=== PATIENT | female | born 1990 | race Caucasian/White ===

== ENCOUNTER → 2016-06-01 | Outpatient (CLI) | payer OTHER ==
[~2016-06-01] MED LIST: ALPR0.5T PO; LURA40TA PO; trazodone
--- NOTE | 2016-06-01 18:19 | Diagnostic Imaging Report ---
EXAMINATION: Right breast ultrasound. INDICATION: Lump in the right breast. FINDINGS: The four quadrants and retroareolar region of the right breast was scanned with no underlying abnormality seen. IMPRESSION: Negative study. Correlate clinically. Mammogram was not done at this time based on the young patient age. If there is worsening of the symptoms or high index of suspicion, then please order a mammogram. ACR BI-RADS Category 1: Negative. Result letter will be mailed to the patient. Note: At least 10% of breast cancer is not imaged by mammography. Dictated by: Dictated on workstation # [id number]
== END ==
LOC: RAD 08:46
PROVIDERS: ATTEND Family Medicine
DX: N63 Unspecified lump in breast (principal)
CPT/HCPCS: 76641

== ENCOUNTER 2016-12-17 18:38 | Emergency (ER) | payer SELFPAY ==
[~2016-12-17] VITALS: Ht 157.5 cm; Wt 63.5 kg
--- OUTSIDE RECORDS SUMMARY | 2016-12-17 18:43 | XMS REPORT | Continuity of Care Document ---
Author Author [facility] Organization [facility] Address Unknown Phone Unavailable Allergies Active Description Code Type Severity Reaction Onset Reported/Identified Relationship to Patient Clinical Status Yes No Known Drug Allergies [id number] Drug Allergy Unknown N/ A 02/23/2014 Medications Problems Date Dx Coded Attending Type Code Diagnosis Diagnosed By 01/03/2013 JANAE PAZ APRNIDI A V25.09 CONTRACEPTIVE COUNSELING - GENERAL 01/03/2013 JACKSON PRIETO JENNY A V74.5 STD SCREEN 01/03/2013 JACKSON PRIETO JENNY A V25.09 CONTRACEPTIVE COUNSELING - GENERAL 01/03/2013 JACKSON PRIETO JENNY A V74.5 STD SCREEN 01/03/2013 MADIE ISLAS MD V25.09 CONTRACEPTIVE COUNSELING - GENERAL 01/03/2013 MADIE ISLAS MD V74.5 STD SCREEN 01/03/2013 JACKSON PRIETO, JENNY A V25.09 CONTRACEPTIVE COUNSELING - GENERAL 01/03/2013 JACKSON PRIETO, JENNY A V74.5 STD SCREEN 01/03/2013 JACKSON PRIETO, JENNY A V25.09 CONTRACEPTIVE COUNSELING - GENERAL 01/03/2013 JACKSON PRIETO, JENNY A V74.5 STD SCREEN 01/03/2013 JACKSON PRIETO JENNY A V25.09 CONTRACEPTIVE COUNSELING - GENERAL 01/03/2013 JACKSON PRIETO, JENNY A V74.5 STD SCREEN 01/03/2013 ALMA PHD, CHETAN Cordon V25.09 CONTRACEPTIVE COUNSELING - GENERAL 01/03/2013 ALMA TAN, CHETAN Cordon V74.5 STD SCREEN 01/03/2013 ALMA TAN, CHETAN Cordon V25.09 CONTRACEPTIVE COUNSELING - GENERAL 01/03/2013 ALMA TAN, CHETAN Cordon V74.5 STD SCREEN 01/03/2013 KAMRON TYLER V25.09 CONTRACEPTIVE COUNSELING - GENERAL 01/03/2013 KAMRON TYLER V74.5 STD SCREEN 01/03/2013 KAMRON TYLER V25.09 CONTRACEPTIVE COUNSELING - GENERAL 01/03/2013 KAMRON TYLER V74.5 STD SCREEN 03/11/2013 JANAE PAZ APRNIDI A V25.11 IUD INSERTION 03/11/2013 MADIE ISLAS MD V25.11 IUD INSERTION 03/11/2013 JANAE PAZ APRNIDI A V25.11 IUD INSERTION 03/11/2013 JANAE PAZ APRNIDI A V25.11 IUD INSERTION 03/11/2013 JANAE PAZ APRNIDI A V25.11 IUD INSERTION 03/11/2013 ALMA PHD, CHETAN Cordon V25.11 IUD INSERTION 03/11/2013 ALMA PHD, HCETAN Cordon V25.11 IUD INSERTION 03/11/2013 KAMRON TYLER V25.11 IUD INSERTION 03/11/2013 KAMRON TYLER V25.11 IUD INSERTION 03/21/2013 MADIE ISLAS MD 296.99 OTHER SPECIFIED EPISODIC MOOD DISORDER 03/21/2013 JANAE PAZ APRNIDI A 296.99 OTHER SPECIFIED EPISODIC MOOD DISORDER 03/21/2013 JANAE PAZ APRNIDI A 296.99 OTHER SPECIFIED EPISODIC MOOD DISORDER 03/21/2013 JANAE PAZ APRNIDI A 296.99 OTHER SPECIFIED EPISODIC MOOD DISORDER 03/21/2013 ALMA PHD, CHETAN Cordon 296.99 OTHER SPECIFIED EPISODIC MOOD DISORDER 03/21/2013 ALMA TAN, CHETAN Cordon 296.99 OTHER SPECIFIED EPISODIC MOOD DISORDER 03/21/2013 KAMRON TYLER 296.99 OTHER SPECIFIED EPISODIC MOOD DISORDER 03/21/2013 KAMRON TYLER 296.99 OTHER SPECIFIED EPISODIC MOOD DISORDER 05/22/2013 JACKSON PRIETO JENNY A 493.00 EXTRINSIC ASTHMA UNSPECIFIED 05/22/2013 JANAE PAZ APRNIDI A 790.6 OTHER ABNORMAL BLOOD CHEMISTRY 05/22/2013 JACKSON PRIEOT JENNY A 996.32 MECHANICAL COMPLICATION DUE TO INTRAUTERINE CONTRACEPTIVE DEVICE 05/22/2013 JANAE PAZ APRNIDI A V25.12 IUD REMOVAL 05/22/2013 JANAE PAZ APRNIDI A 493.00 EXTRINSIC ASTHMA UNSPECIFIED 05/22/2013 JACKSON PATTERN MOLDER, JENNY A 790.6 OTHER ABNORMAL BLOOD CHEMISTRY 05/22/2013 JACKSON VARGASN, JENNY A 996.32 MECHANICAL COMPLICATION DUE TO INTRAUTERINE CONTRACEPTIVE DEVICE 05/22/2013 JACKSON VARGASN, JENNY A V25.12 IUD REMOVAL 05/22/2013 JACKSON VARGASN, JENNY A 493.00 EXTRINSIC ASTHMA UNSPECIFIED 05/22/2013 JACKSON VARGASN, JENNY A 790.6 OTHER ABNORMAL BLOOD CHEMISTRY 05/22/2013 JACKSON VARGASN, JENNY A 996.32 MECHANICAL COMPLICATION DUE TO INTRAUTERINE CONTRACEPTIVE DEVICE 05/22/2013 JACKSON VARGASN, JENNY A V25.12 IUD REMOVAL 05/22/2013 ALMA TAN, CHETAN Cordon 493.00 EXTRINSIC ASTHMA UNSPECIFIED 05/22/2013 ALMA TAN, CHETAN Cordon 790.6 OTHER ABNORMAL BLOOD CHEMISTRY 05/22/2013 ALMA TAN, CHETAN Cordon 996.32 MECHANICAL COMPLICATION DUE TO INTRAUTERINE CONTRACEPTIVE DEVICE 05/22/2013 CHETAN MARQUEZ PHD V25.12 IUD REMOVAL 05/22/2013 CHETAN MARQUEZ PHD 493.00 EXTRINSIC ASTHMA UNSPECIFIED 05/22/2013 ALMA TAN, CHETAN Cordon 790.6 OTHER ABNORMAL BLOOD CHEMISTRY 05/22/2013 ALMA TAN, CHETAN Cordon 996.32 MECHANICAL COMPLICATION DUE TO INTRAUTERINE CONTRACEPTIVE DEVICE 05/22/2013 ALMA TAN, CHETAN Cordon V25.12 IUD REMOVAL 05/22/2013 JAKE BUNDLE HELPER, KAMRON M 493.00 EXTRINSIC ASTHMA UNSPECIFIED 05/22/2013 JAKE BUNDLE HELPER, KAMRON M 790.6 OTHER ABNORMAL BLOOD CHEMISTRY 05/22/2013 JAKE BUNDLE HELPER, KAMRON M 996.32 MECHANICAL COMPLICATION DUE TO INTRAUTERINE CONTRACEPTIVE DEVICE 05/22/2013 JAKE BUNDLE HELPER, KAMRON M V25.12 IUD REMOVAL 05/22/2013 JAKE BUNDLE HELPER, KAMRON M 493.00 EXTRINSIC ASTHMA UNSPECIFIED 05/22/2013 JAKE BUNDLE HELPER, KAMRON M 790.6 OTHER ABNORMAL BLOOD CHEMISTRY 05/22/2013 JAKE BUNDLE HELPER, KAMRON M 996.32 MECHANICAL COMPLICATION DUE TO INTRAUTERINE CONTRACEPTIVE DEVICE 05/22/2013 JAKE BUNDLE HELPER, KAMRON M V25.12 IUD REMOVAL 07/15/2013 JACKSON VARGASN, JENNY A V25.42 CONTRACEPTION SURVEILLANCE (IUD) 07/15/2013 CHETAN MARQUEZ PHD V25.42 CONTRACEPTION SURVEILLANCE (IUD) 07/15/2013 CHETAN MARQUEZ PHD V25.42 CONTRACEPTION SURVEILLANCE (IUD) 07/15/2013 KAMRON TYLER V25.42 CONTRACEPTION SURVEILLANCE (IUD) 07/15/2013 KAMRON TYLER V25.42 CONTRACEPTION SURVEILLANCE (IUD) 11/27/2013 CHETAN MARQUEZ PHD 296.80 MO BIPOLAR NOS 11/27/2013 CHETAN MARQUEZ PHD 300.00 AN ANXIETY UNSPEC 11/27/2013 CHETAN MARQUEZ PHD 296.80 MO BIPOLAR NOS 11/27/2013 CHETAN MARQUEZ PHD 300.00 AN ANXIETY UNSPEC 11/27/2013 KAMRON TYLER 296.80 MO BIPOLAR NOS 11/27/2013 KAMRON TYLER 300.00 AN ANXIETY UNSPEC 11/27/2013 KAMRON TYLER M 296.80 MO BIPOLAR NOS 11/27/2013 KAMRON TYLER M 300.00 AN ANXIETY UNSPEC 01/17/2014 KAMRON TYLER M 305.20 CANNABIS ABUSE 01/17/2014 KAMRON TYLER M 305.20 CANNABIS ABUSE 02/23/2014 KULDEEP DODD Ot 611.72 02/23/2014 FORTINO CAMARENA, NITISH [place] Ot 372.30 CONJUNCTIVITIS NOS 02/23/2014 FORTINO CAMARENA, NITISH [place] Ot 379.91 PAIN IN OR AROUND EYE 06/11/2014 KULDEEP DODD LUMBER CUTTER Ot 611.72 06/01/2016 KULDEEP DODD LUMBER CUTTER Ot 611.72 LUMP OR MASS IN BREAST 06/01/2016 KULDEEP DODD LUMBER CUTTER Ot 611.72 LUMP OR MASS IN BREAST 06/01/2016 MADIE ISLAS MD Ot N63 UNSPECIFIED LUMP IN BREAST 07/25/2016 MADIE ISLAS MD Ot N63 UNSPECIFIED LUMP IN BREAST Procedures Code [place] [address] GC/CHLAM URINE (STATE) 01/03/2013 51340 URINE TEST (IN-HOUSE) 01/03/2013 61151 TEST, URINE (IN-HOUSE) 03/11/2013 70622 IUD INSERTION 08/2013 J7302 LEVONORGESTREL IU CONTRACEPT 03/11/2013 44143 ROUTINE VENIPUNCTURE 05/22/2013 23837 IUD REMOVAL 05/22 69382 CMP 05/22/2013 51163 LIPID PANEL 05/22 96707 TEST, URINE (IN-HOUSE) 06/03/2013 07151 IUD INSERTION J7302 LEVONORGESTREL IU CONTRACEPT 06/03/2013 73719 PSYCH DIAGNOSTIC EVALUATION 11/27/2013 13355 PSYTX PT&/FAMILY 45 MINUTES 12/18/2013 43665 PSYCH DIAG EVAL W/MED SRVCS 01/19/2014 33294 PSYCH DIAG EVAL W/MED SRVCS 03/10/2014 Results Encounters ACCT No. Visit Date/Time Discharge Status Pt. Type Provider Facility Loc./Unit Complaint [id number] 06/01/2016 08:46:00 2016 23:59:59 CLS Outpatient ROSHAN CAMARENA, MADIE [place] [facility] RAD LUMP IN BREAST [id number] 02/23/2014 01:51:00 2013 02:13:00 DIS Emergency FORTINO CAMARENA, NITISH [place] [facility] ER L EYE IRRITATION [id number] 01/15/2013 10:16:00 2012 23:59:59 CLS Outpatient KULDEEP DODD LUMBER CUTTER [facility] RAD BREAST MASS [id number] 03/21/2014 16:33:00 03/21/2014 23: 59:59 CLS Outpatient KAMRON TYLER [id number] 01/17/2014 15:42:00 01/17/2014 23: 59:59 CLS Outpatient KAMRON TYLER [id number] 12/18/2013 14:40:00 12/18/2013 23: 59:59 CLS Outpatient CHETAN MARQUEZ PHD [id number] 11/27/2013 12:38:00 11/27/2013 23: 59:59 CLS Outpatient CHETAN MARQUEZ PHD [id number] 07/15/2013 15:56:00 07/15/2013 23: 59:59 CLS Outpatient JENNY PAZ APRN [id number] 06/03/2013 16:10:00 06/03/2013 23: 59:59 CLS Outpatient JENNY PAZ APRN [id number] 05/22/2013 16:04:00 05/22/2013 23: 59:59 CLS Outpatient JENNY PAZ APRN [id number] 03/21/2013 14:06:00 03/21/2013 23: 59:59 CLS Outpatient MADIE ISLAS MD [id number] 03/11/2013 14:48:00 03/11/2013 23: 59:59 CLS Outpatient JENNY PAZ APRN [id number] 01/03/2013 16:53:00 01/03/2013 23: 59:59 CLS Outpatient JENNY PAZ APRN
--- NOTE | 2016-12-17 19:40 | Diagnostic Imaging Report ---
INDICATION: Left leg injury. COMPARISON: None. EXAMINATION: Three views of the left tibia and fibula were obtained. FINDINGS: No fracture or dislocation. Articular surfaces are normal. There is no foreign body. No osseous lesion. IMPRESSION: Negative left tibia and fibula. Dictated by: Dictated on workstation # [id number]
--- NOTE | 2016-12-17 20:28 | Diagnostic Imaging Report ---
PROCEDURE: US left lower extremity venous. TECHNIQUE: Multiple real-time grayscale images were obtained over the left lower extremity in various projections. Additional duplex Doppler and color Doppler images were also obtained. INDICATION: Left calf pain COMPARISON: None FINDINGS: The visualized deep and superficial venous system is patent. There is no mass or DVT. IMPRESSION: Negative left lower extremity venous Doppler Dictated by: Dictated on workstation # [id number]
--- NOTE | 2016-12-17 20:43 | ED Lower Extremity ---
General Chief Complaint: Lower Extremity Stated Complaint: L LEG PAIN Nursing Triage Note: c/o pain to left lower posterior leg. Onset this evening. Denies known trauma. Nursing Sepsis Screen: No Definite Risk Source: patient History of Present Illness Time seen by provider: 19:05 Initial Comments PT ARRIVES VIA POV FROM HOME STATES SHE WOKE UP AT 1700 TONIGHT AND AT 1800, SHE SQUATTED DOWN AND HAD SEVERE PAIN IN LEFT MID CALF AREA STATES "THE PAIN IS SO BAD IT FEELS LIKE MY BONE IS GOING TO SNAP WHEN I SQUAT" PT STATES "THE PAIN IS AN 11/10" HAS NOT TAKEN ANYTHING FOR PAIN NO PAIN WITH ANY OTHER ACTIVITIES, ONLY WITH SQUATTING NO INJURY OR UNUSUAL OR EXCESSIVE ACTIVITY, CLIMBING STAIRS/LADDERS, ETC NO PARESTHESIAS OR MOTOR DEFICITS NO SWELLING OR DISCOLORATION TO LEG NO HISTORY OF PRIOR PROBLEMS WITH THIS LEG PT WAS SUPPOSED TO GO TO WORK TONIGHT, BUT CAME HERE INSTEAD--NEEDS A WORK NOTE Allergies and Home Medications Allergies Coded Allergies: No Known Drug Allergies (Unverified , 02/23/14) Home Medications Alprazolam 0.5 Mg Tablet, 0.5 MG PO PRN PRN for ANXIETY, (Reported) Cyclobenzaprine HCl 10 Mg Tablet, 10 MG PO Q8H, #15 Prescribed by: BLAINE CORONA on 12/17/162055 Lurasidone Hcl 40 Mg Tablet, 40 MG PO DAILY, (Reported) Methylprednisolone 4 Mg Tab.ds.pk, 4 MG PO UD, #1 Prescribed by: BLAINE CORONA on 12/17/162055 [trazodone] , (Reported) Constitutional: no symptoms reported Respiratory: no symptoms reported, No dyspnea on exertion, No short of breath Cardiovascular: no symptoms reported, No chest pain Gastrointestinal: no symptoms reported Genitourinary: no symptoms reported Musculoskeletal: see HPI Skin: no symptoms reported Psychiatric/Neurological: No Symptoms Reported Past Hhcvcnj-Jewvsc-Jxvple Hx Patient Social History Alcohol Use: Rarely Uses Recreational Drug Use: Yes (THC BY HX) Smoking Status: Current Everyday Smoker (1 PPD) Type Used: Cigarettes Recent Foreign Travel: No Contact w/Someone Who Travel: No Recent Infectious Disease Expo: No Immunizations Up To Date Date of Influenza Vaccine: Dec 04, 2013 Surgeries History of Surgeries: No Respiratory History of Respiratory Disorde: Yes Respiratory Disorders: Asthma Cardiovascular History of Cardiac Disorders: No Neurological History of Neurological Disord: No Reproductive System : No GED TEACHER History: IUD Genitourinary History of Genitourinary Disor: No Gastrointestinal History of Gastrointestinal Di: No Musculoskeletal History of Musculoskeletal Dis: No Endocrine History of Endocrine Disorders: No HEENT History of HEENT Disorders: No Cancer History of Cancer: No Psychosocial History of Psychiatric Problem: Yes (MOOD DISORDER) Behavioral Health Disorders: Anxiety, PTSD, Bipolar, Depression Integumentary History of Skin or Integumenta: No Blood Transfusions History of Blood Disorders: No Adverse Reaction to a Blood Tr: No Physical Exam Vital Signs Vital Sign - Last 12Hours 12/17/16 19:03 Temp 98.1 Pulse 70 Resp 16 B/P (MAP) 129/83 Pulse Ox 98 O2 Delivery Room Air Capillary Refill : Less Than 3 Seconds General Appearance: WD/WN, no apparent distress, other (WALKS WITHOUT DIFFICULTY) Cardiovascular: normal peripheral pulses, regular rate, rhythm, no murmur Respiratory: normal breath sounds, no respiratory distress, no accessory muscle use Hips: bilateral hip non-tender, bilateral hip normal inspection, bilateral hip normal range of motion, bilateral hip no evidence of injury Legs: bilateral leg non-tender, bilateral leg normal inspection, bilateral leg normal range of motion, bilateral leg no evidence of injury, bilateral leg other (LEFT CALF NON-TENDER TO PALPATION, NEGATIVE DOMINIC'S. 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, no motor/sensory deficits, alert, normal mood/affect, oriented x 3 Skin: normal color, warm/dry, No rash Progress/Results/Core Measures Results/Orders My Orders Orders - BLAINE CORONA DO Us Venous Lower Ext Lt (12/17/16 19:12) Tibia/Fibula, Left, 2 Views (12/17/16 19:12) Rx-Cyclobenzaprine Tablet (Rx-Flexeril T (12/17/16 20:53) Prednisone Tablet (Deltasone Tablet) (12/17/16 21:00) Cyclobenzaprine Tablet (Flexeril Tablet) (12/17/16 21:15) Cyclobenzaprine Tablet (Flexeril Tablet) (12/17/16 20:58) Medications Given in ED Current Medications Medications Dose Ordered Sig/Damion Route Start Time Stop Time Status Last Admin Dose Admin Prednisone 40 mg ONCE ONCE PO 12/17/16 21:00 12/17/16 21:01 DC 12/17/16 21:05 40 MG Vital Signs/I&O Vital Sign - Last 12Hours 12/17/16 12/17/16 19:03 21:00 Temp 98.1 98.1 Pulse 70 68 Resp 16 16 B/P (MAP) 129/83 Pulse Ox 98 98 O2 Delivery Room Air Blood Pressure Mean: 98 Diagnostic Imaging Comments XRAYS LEFT TIB-FIB--NO ACUTE PROCESS, PER RADIOLOGIST REPORT AT 2024 ULTRASOUND/VENOUS DOPPLER LEFT LEG--NO ACUTE PROCESS, PER RADIOLOGIST REPORT AT 2042 Reviewed: Reviewed by Me Departure Impression Impression: Primary Impression: Pain of left calf Additional Impression: POSSIBLE MUSCLE STRAIN LEFT CALF Disposition: HOME, SELF-CARE Condition: Stable Departure-Patient Inst. Referrals: NO,LOCAL PHYSICIAN (PCP/Family) Primary Care Physician Patient Instructions: Lower Extremity Muscle Strain (DC) Add. Discharge Instructions: ALTERNATE ICE AND HEAT TO SORE AREA AT 20 MINUTE INTERVALS FOLLOW UP WITH [facility] IN 3-4 DAYS IF NO BETTER All discharge instructions reviewed with patient and/or family. Voiced understanding. Scripts Cyclobenzaprine HCl (Cyclobenzaprine HCl) 10 Mg Tablet 10 MG PO Q8H, #15 TAB Prov: BLAINE CORONA DO 12/17/16 Methylprednisolone (Medrol) 4 Mg Tab.ds.pk 4 MG PO UD, #1 PKG Prov: BLAINE CORONA DO 12/17/16 Work/School Note: Work Release Form Date Seen in the Emergency Department: Dec 17, 2016 Return to Work: Dec 18, 2016 BLAINE CORONA DO Dec 17, 2016 20:43
[2016-12-17] MEDS ORDERED: RX-CYCLOBENZAPRINE 10 MG (FLEXERIL) TAB PPK#3 PO STA (20:53)
[2016-12-17] MEDS ORDERED: CYCL10TA9 PO (20:56)
[2016-12-17] MEDS ORDERED: METH4TAB PO (20:56)
[2016-12-17] MEDS ORDERED: CYCLOBENZAPRINE 10 MG (FLEXERIL) TAB ONE (20:58)
[2016-12-17 21:00] VITALS: BP 126/80
[2016-12-17] MEDS ORDERED: predniSONE 20 MG TAB PO ONE (21:00)
[2016-12-17] MEDS ORDERED: CYCLOBENZAPRINE 10 MG (FLEXERIL) TAB PO SCH (21:15)
== END 2016-12-17 21:00 | disposition home or self-care (01) ==
LOC: EDUNIT# 18:38 → ER 18:40
DX: M79.605 Pain in left leg (principal); F41.9 Anxiety disorder, unspecified; F43.10 Post-traumatic stress disorder, unspecified; F31.9 Bipolar disorder, unspecified; J45.909 Unspecified asthma, uncomplicated; Z97.5 Presence of (intrauterine) contraceptive device
CPT/HCPCS: 73590; 99283

== ENCOUNTER → 2017-05-18 | Outpatient (CLI) | payer MEDICAID, OTHER ==
[~2017-05-18] MED LIST changes: +CYCL10TA9 PO; +METH4TAB PO
--- NOTE | 2017-05-18 11:13 | Diagnostic Imaging Report ---
INDICATION: TECHNIQUE: Multiple real-time grayscale images were obtained over the gravid uterus. COMPARISON: None FINDINGS: There are no prior studies available for comparison. There is a single live fetus in variable presentation. heart motion was noted at a rate of 156 bpm recorded. There were no abnormalities identified. The growth perimeters are fairly uniform. The placenta is posterior and there is no previa. The amniotic fluid volume is within normal limits. The cervix was identified and measures 5.2 cm in length (normal 3 cm or greater). Biometrical measurements are as follows: Biparietal 4.5 cm, age 19 weeks 4 days. Head circumference 16.8 cm, age 19 weeks 3 days. Abdominal circumference 14.4 cm, age 19 weeks 6 days. Femur length 3.3 cm, age 20 weeks 2 days. Sonographic estimate age: 19 weeks 6 days. Sonographic estimated date of delivery: 10/06/17. Estimated Weight: 318 gm (+/- 47 gm). LMP percentile: 38%. heart rate: 156 beats per minute. number: 1 of 1. IMPRESSION: 1. There is single live fetus approximately 19 weeks 6 days gestation plus or minus. The EDC is 10/06/2017. 2. There are no abnormalities identified. 3. The growth perimeters are fairly uniform. Dictated by: Dictated on workstation # [id number]
== END ==
LOC: RAD 09:49
PROVIDERS: ATTEND Obstetrics & Gynecology
DX: Z34.92 Encounter for supervision of normal pregnancy, unspecified, second trimester (principal); Z3A.19 19 weeks gestation of pregnancy
CPT/HCPCS: 76805

== ENCOUNTER 2017-07-16 10:53 | Outpatient (CLI) | payer OTHER ==
[~2017-07-16] VITALS: Ht 157.5 cm; Wt 66.8 kg
[2017-07-16 11:30] VITALS: BP 133/71
[2017-07-16] MEDS ORDERED: PREN-53 PO (11:39)
--- NOTE | 2017-07-17 12:24 | Physician Query-Final Dx ---
ANDRIA DAILEY 07/17/17 1224: Clinic Account Progress/Dx Physician Query: Please give diagnosis Date of Service July 16, 2017 at 10:53 EULOGIO BAUER DO 07/18/17 1318: Clinic Account Progress/Dx DIAGNOSIS: Diagnosis 28 week IUP Exposure to natural gas at work Decreased movement ANDRIA DAILEY July 17, 2017 12:24 EULOGIO BAUER DO July 18, 2017 13:18
== END 2017-07-16 11:44 | disposition home or self-care (01) ==
LOC: LDRP 10:53 → WSo 10:53
PROVIDERS: ATTEND Obstetrics & Gynecology
DX: O9A.213 Injury, poisoning and certain other consequences of external causes complicating pregnancy, third trimester (principal); T59.891A Toxic effect of other specified gases, fumes and vapors, accidental (unintentional), initial encounter; O36.8130 Decreased fetal movements, third trimester, not applicable or unspecified; Z3A.28 28 weeks gestation of pregnancy
CPT/HCPCS: 99213

== ENCOUNTER 2017-09-01 05:03 | Outpatient (CLI) | payer OTHER ==
[~2017-09-01] VITALS: Ht 157.5 cm; Wt 71.4 kg
[~2017-09-01 05:03] MED LIST changes: +PREN-53 PO
[2017-09-01 06:08] VITALS: BP 123/64
--- NOTE | 2017-09-04 13:11 | Physician Query-Final Dx ---
BÁRBARA FALL 09/04/17 1311: Clinic Account Progress/Dx Physician Query: Please give diagnosis Date of Service Sep 01, 2017 at 05:03 EULOGIO BAUER DO 09/04/17 1438: Clinic Account Progress/Dx DIAGNOSIS: Diagnosis 35 week IUP Back pain LE swelling BÁRBARA FALL Sep 04, 2017 13:11 EULOGIO BAUER DO Sep 04, 2017 14:38
[2017-09-30] MEDS ORDERED: HYDR15SO8 PO (06:43)
[2017-09-30] MEDS ORDERED: IBUP100O30 PO (06:43)
[2017-09-30] MEDS ORDERED: DOCU50LI PO (06:43)
[2017-09-30] MEDS ORDERED: FESO45ML PO (06:43)
== END 2017-09-01 06:08 | disposition home or self-care (01) ==
LOC: WSo 05:03 → LDRP 05:05 → WSo 06:08
PROVIDERS: ATTEND Obstetrics & Gynecology
DX: M54.5 Low back pain (principal); R60.0 Localized edema; Z3A.35 35 weeks gestation of pregnancy
CPT/HCPCS: 99213

== ENCOUNTER 2017-09-29 03:10 | Inpatient (IN) | payer OTHER ==
[~2017-09-29] VITALS: Ht 157.5 cm; Wt 71.4 kg
[2017-09-29] VITALS (13 sets, daily range): BP systolic 107–139; BP diastolic 60–83
[2017-09-29] MEDS ORDERED: D5 LR IV SOLUTION 1,000 ML IV ONE (03:33)
[2017-09-29 03:43] LABS: BILIRUBIN,URINE NEGATIVE (NEGATIVE); CLARITY,URINE SLIGHTLY CLOUDY; COLOR,URINE YELLOW; GLUCOSE, URINE (UA) NEGATIVE (NEGATIVE); KETONES,URINE NEGATIVE (NEGATIVE); LEUKOCYTE ESTERASE ,URINE 1+ (NEGATIVE); NITRITE,URINE NEGATIVE (NEGATIVE); PH,URINE 6.5 (5-9); PROTEIN,URINE NEGATIVE (NEGATIVE); UROBILINOGEN,URINE NORMAL (NORMAL)
[2017-09-29 03:55] LABS: BACTERIA,URINE TRACE /HPF; WBC,URINE 0-2 /HPF
[2017-09-29] MEDS ORDERED: D5 LR IV SOLUTION 1,000 ML IV SCH (04:00)
[2017-09-29 04:15] LABS: BASOPHILS % (AUTO) 0 % (0-10); EOSINOPHILS % (AUTO) 0 % (0-10); HEMATOCRIT 38 % (35-52); HEMOGLOBIN 13.4 G/DL (11.5-16.0); LYMPHOCYTES # (AUTO) 1.8 X 10^3 (1.0-4.0); LYMPHOCYTES % (AUTO) 13 % (12-44); MEAN CORPUSCULAR HEMOGLOBIN 32 PG (25-34); MEAN CORPUSCULAR HGB CONC 36 G/DL (32-36); MEAN CORPUSCULAR VOLUME 91 FL (80-99); MEAN PLATELET VOLUME 12.1 FL (7.4-10.4); MONOCYTES # (AUTO) 0.8 X 10^3 (0.0-1.0); MONOCYTES % (AUTO) 6 % (0-12); NEUTROPHILS # (AUTO) 11.1 X 10^3 (1.8-7.8); NEUTROPHILS % (AUTO) 81 % (42-75); PLATELET COUNT 180 10^3/uL (130-400); RED BLOOD COUNT 4.13 10^6/uL (4.35-5.85); WHITE BLOOD COUNT 13.8 10^3/uL (4.3-11.0)
[2017-09-29] MEDS ORDERED: HYDROmorphone 1 MG/ML (DILAUDID) 1 ML SYRINGE IV ONE (05:30)
[2017-09-29] MEDS ORDERED: CATHETER FLUSH 10 ML SYR IV SCH ×2 (06:00→14:00)
[2017-09-29] MEDS ORDERED: OXYTOCIN/NORMAL SALINE 500 ML IV ONE (07:33)
[2017-09-29] MEDS ORDERED: LIDOCAINE/EPI 2% 1:200,00 (XYLOCAINE) 10 ML VIAL ONE (07:33)
--- NOTE | 2017-09-29 07:38 | History & Physical-OB ---
OB - Chief Complaint & HPI Date/Time Date of Admission: Date of Admission: Sep 29, 2017 at 5:15 am Time Seen by Provider: 07:00 Chief Complaint/History OB-Reason for Admission/Chief: Onset of Labor Hx : 1 Hx Para: 0 Expected Date of Delivery: Oct 05, 2017 Gestational Age in Weeks: 39 Admission Nurse Assessment Rev: Yes History of Labs O pos Antibody neg RI RPR NR HBsAg NR HIV NR GC neg GBS neg Allergies and Home Medications Allergies Coded Allergies: No Known Drug Allergies (Unverified , 02/23/14) Home Medications Idr254/Iron Fumarate/FA/Dss 1 Each Tablet, 1 EACH PO DAILY, (Reported) Patient Home Medication List Home Medication List Reviewed: Yes OB - History Hx of Present Care: Yes Ultrasounds: Normal mid trimester US Obstetrical Complications: None Medical Complications: None Obstetrical History Hx : 1 Delivery History Hx Blood Disorders: No Adverse Rxn to Tranfusion: No Patient Past Medical History n/a Social History/Family History Recent Infectious Disease Expo: No Alcohol Use: Denies Use Recreational Drug Use: No Immunizations Date of Influenza Vaccine: Dec 04, 2013 OB - Admission Exam Physical Exam Vitals: Vital Signs 09/29/17 09/29/17 09/29/17 04:20 06:00 07:00 Temp 98.2 Pulse 89 Resp 18 B/P (MAP) 119/81 (94) Pulse Ox 97 O2 Delivery Room Air HEENT: NCAT Heart: Rhythm Normal Lungs: Clear Abdomen: Gravid Extremities: Normal Reflexes: Normal Cervical Dilatation: 4cm Effacement: 75% Station: -1 Membranes: Intact Heart Rate: 130's Accelerations: Accelerations Present Decelerations: No Decelerations Short Term Variability: Present Customs Patrol Officer Variability: Average (6-25) Contractions on Admission: < 5 Minutes Apart Intensity: Firm Labs Laboratory Tests Test 09/29/17 03:30 09/29/17 03:50 Range/Units Urine Color YELLOW Urine Clarity SLIGHTLY CLOUDY Urine pH 6.5 5-9 Urine Specific [place] 1.010 L 1.016-1.022 Urine Protein NEGATIVE NEGATIVE Urine Glucose (UA) NEGATIVE NEGATIVE Urine Ketones NEGATIVE NEGATIVE Urine Nitrite NEGATIVE NEGATIVE Urine Bilirubin NEGATIVE NEGATIVE Urine Urobilinogen NORMAL NORMAL MG/DL Urine Leukocyte Esterase 1+ H NEGATIVE Urine RBC (Auto) NEGATIVE NEGATIVE Urine RBC NONE /HPF Urine WBC 0-2 /HPF Urine Squamous Epithelial Cells 2-5 /HPF Urine Crystals NONE /LPF Urine Bacteria TRACE /HPF Urine Casts NONE /LPF Urine Mucus NEGATIVE /LPF Urine Culture Indicated NO White Blood Count 13.8 H 4.3-11.0 10^3/uL Red Blood Count 4.13 L 4.35-5.85 10^6/uL Hemoglobin 13.4 11.5-16.0 G/DL Hematocrit 38 35-52 % Mean Corpuscular Volume 91 80-99 FL Mean Corpuscular Hemoglobin 32 25-34 PG Mean Corpuscular Hemoglobin Concent 36 32-36 G/DL Red Cell Distribution Width 13.0 10.0-14.5 % Platelet Count 180 130-400 10^3/uL Mean Platelet Volume 12.1 H 7.4-10.4 FL Neutrophils (%) (Auto) 81 H 42-75 % Lymphocytes (%) (Auto) 13 12-44 % Monocytes (%) (Auto) 6 0-12 % Eosinophils (%) (Auto) 0 0-10 % Basophils (%) (Auto) 0 0-10 % Neutrophils # (Auto) 11.1 H 1.8-7.8 X 10^3 Lymphocytes # (Auto) 1.8 1.0-4.0 X 10^3 Monocytes # (Auto) 0.8 0.0-1.0 X 10^3 Eosinophils # (Auto) 0.0 0.0-0.3 10^3/uL Basophils # (Auto) 0.0 0.0-0.1 10^3/uL OB - Assessment/Plan/Diagnosis Assessment Assessment: active labor Admission Dx 27 yo @ 39.1 Active labor GBS neg Admission Status: Inpatient Order (span 2 midnights) Reason for Inpatient Admission: Term Active labor Plan Plan: Expectant Management EULOGIO BAUER DO Sep 29, 2017 7:38 am
[2017-09-29] MEDS ORDERED: OXYTOCIN/NORMAL SALINE 500 ML IV SCH (08:52)
--- NOTE | 2017-09-29 08:56 | OB Labor & Delivery Record ---
L&D History Date of Service Date of Service: Sep 29, 2017 History Expected Date of Delivery: Oct 05, 2017 Gestational Age in Weeks: 39 Hx : 1 Hx Para: 0 Complications Events: Routine care Operative Indications (Cesarea: N/A-Vaginal Delivery Intrapartal Events: None L&D Stage1 Stage One Onset of Labor - Date: Sep 29, 2017 Monitors and Tracing Monitor Mode: External Heart Rate: 130 Monitor Decelerations: None Station: -2 Short Term Variability: Present Presentation: Vertex Vital Signs VS - Last 72 Hours, by Label 09/29/17 09/29/17 09/29/17 09/29/17 03:30 03:41 04:15 04:20 Temp 98.2 Pulse 88 85 84 84 Resp 18 20 20 18 B/P (MAP) 132/67 (88) 132/67 (88) 119/81 (94) 119/81 (94) Pulse Ox 97 97 97 O2 Delivery Room Air Room Air 09/29/17 09/29/17 09/29/17 09/29/17 05:00 06:00 06:40 07:00 Pulse 83 89 Resp 18 18 18 18 Pulse Ox 98 97 O2 Delivery Room Air Room Air Room Air Room Air Rupture of Membranes Amniotic Membrane Rupture Time: 0640 Amniotic Membrane Fluid Desc.: Clear Vaginal Bleeding Description: Normal Show Progress/Notes progressed to complete and + 2 with no augmentation other than AROM L&D Stage2 Stage Two Stage II Date: Sep 29, 2017 Monitors and Tracing Monitor Mode: External Heart Rate: 130 Monitor Decelerations: Variable Soldering Machine Tender Variability: Average (6-10) Short Term Variability: Present Position: Right Occiput Anterior Presentation: Vertex Cord Descript/Complications Cord Vessel Description: 3 Vessels Delivery Type Delivery Method: Spontaneous Vaginal Anterior Shoulder: Right Episiotomy/Perineal Laceration Laceraction(s)/Extensions: Yes Episiotomy Description: Right Mediolateral (RML repaired using 3-0 and 2-0 vicryl suture) Condition of Delivery 1 minute Comment: 8 5 minute Comment: 9 Condition of Condition of : Living Exam: No Observed Abnormalities Live female weight 5lbs 14 oz Resuscitation Resuscitation: N/A - Spontaneous Resp L&D Stage3 Stage Three Stage III Date: Sep 29, 2017 Pictocin Pitocin Administration Comment: wide open 30 mu at delivery of placenta Placenta Delivery Placenta Delivery: Spontaneous Delivery Summary Summary Estimated blood loss (mL): 350 Attending at delivery: Eulogio Bauer DO Condition of Delivery Examined: Cervix Examined, Uterus Explored Post Hemorrhage: Yes Condition of Mother stable Condition of (s) stable EULOGIO BAUER DO Sep 29, 2017 8:56 am
[2017-09-29] MEDS ORDERED: FERROUS SULF 325 MG (IRON) TAB PO SCH (09:00)
[2017-09-29] MEDS ORDERED: BENZOCAINE/MENTHOL (DERMOPLAST) 56 ML CAN TP PRN (09:00)
[2017-09-29] MEDS ORDERED: HYDROcodone/APAP 5 MG/325 MG (LORTAB) TAB PO PRN (09:00)
[2017-09-29] MEDS ORDERED: TETANUS,DIPTH,PERTUSS P/F (BOOSTRIX) 0.5 ML VIAL IM ONE (09:00)
[2017-09-29] MEDS ORDERED: IBUPROFEN 600 MG (MOTRIN) TAB PO SCH (09:00)
[2017-09-29] MEDS ORDERED: DOCUSATE SODIUM 100 MG (COLACE) CAP PO SCH (09:00)
[2017-09-29] MEDS ORDERED: DIBUCAINE (NUPERCAINAL) 1% OINT 30 GM TOP PRN (09:00)
[2017-09-29] MEDS ORDERED: MEASLES,MUMPS,RUBELLA 1 EA INJ SQ ONE (09:00)
[2017-09-29] MEDS ORDERED: WITCH HAZEL(TUCKS) 40 EA JAR TOP PRN (09:00)
[2017-09-29] MEDS ORDERED: HYDROcodone/APAP 7.5MG-325 MG/15 ML (LORTAB) UDC PO PRN (10:30)
[2017-09-29] MEDS: FERROUS SULFATE ORAL LIQUID 44 MG/ML ML PO SCH (10:40)
[2017-09-29] MEDS: DOCUSATE SODIUM 10 MG/ML 10 ML UDC (COLACE) PO SCH ×2 (13:40→21:44)
[2017-09-29] MEDS ORDERED: LIDOCAINE/EPI 2% 1:200,00 (XYLOCAINE) 10 ML VIAL INJ ONE (13:45)
[2017-09-29] MEDS: IBUPROFEN SUSP 100MG/5ML (MOTRIN) UDC PO SCH ×2 (15:45→21:44)
[2017-09-30 02:30] VITALS: BP 121/83
[2017-09-30] MEDS: IBUPROFEN SUSP 100MG/5ML (MOTRIN) UDC PO SCH ×3 (03:36→15:10)
[2017-09-30 06:37] LABS: BASOPHILS % (AUTO) 0 % (0-10); EOSINOPHILS # (AUTO) 0.1 10^3/uL (0.0-0.3); EOSINOPHILS % (AUTO) 1 % (0-10); HEMATOCRIT 31 % (35-52); HEMOGLOBIN 11.1 G/DL (11.5-16.0); LYMPHOCYTES # (AUTO) 2.9 X 10^3 (1.0-4.0); LYMPHOCYTES % (AUTO) 31 % (12-44); MEAN CORPUSCULAR HEMOGLOBIN 33 PG (25-34); MEAN CORPUSCULAR HGB CONC 36 G/DL (32-36); MEAN CORPUSCULAR VOLUME 93 FL (80-99); MEAN PLATELET VOLUME 11.4 FL (7.4-10.4); MONOCYTES # (AUTO) 0.6 X 10^3 (0.0-1.0); MONOCYTES % (AUTO) 6 % (0-12); NEUTROPHILS # (AUTO) 5.7 X 10^3 (1.8-7.8); NEUTROPHILS % (AUTO) 61 % (42-75); PLATELET COUNT 143 10^3/uL (130-400); RED BLOOD COUNT 3.35 10^6/uL (4.35-5.85); RED CELL DISTRIBUTION WIDTH 13.1 % (10.0-14.5); WHITE BLOOD COUNT 9.4 10^3/uL (4.3-11.0)
--- NOTE | 2017-09-30 06:39 | Postpartum Progress Note ---
Note Note Day # 1 Subjective: Patient is without complaints. Ambulating, voiding. Tolerating a regular diet without nausea or vomiting. Normal lochia. Pain is well controlled with oral pain medications. Objective: Vital Sign - Last 24 Hours 09/29/17 09/29/17 09/29/17 09/29/17 06:40 07:00 07:05 07:53 Temp 97.7 Pulse 79 Resp 18 18 18 B/P (MAP) 135/81 (99) O2 Delivery Room Air Room Air Non Rebreather O2 Flow Rate 15.00 09/29/17 09/29/17 09/29/17 09/29/17 08:08 08:36 09:06 09:36 Pulse 127 110 102 92 Resp 22 22 22 B/P (MAP) 139/64 (89) 107/60 (76) 119/65 (83) 129/66 (87) O2 Delivery Non Rebreather Room Air Room Air Room Air O2 Flow Rate 15.00 09/29/17 09/29/17 09/29/17 09/29/17 10:06 10:36 16:26 21:44 Temp 98.2 97.5 Pulse 85 79 86 75 Resp 18 B/P (MAP) 114/70 (85) 128/74 (92) 123/83 (96) 109/69 (82) Pulse Ox 99 99 O2 Delivery Room Air Room Air Room Air Room Air 09/30/17 02:30 Temp 97.4 Pulse 90 Resp 18 B/P (MAP) 121/83 (96) Pulse Ox 99 O2 Delivery Room Air Intake and Output 09/29/17 09/29/17 09/30/17 15:00 23:00 07:00 Intake Total 500 ml Balance 500 ml Physical Exam: General - Alert and oriented, no apparent distress Abdomen - Soft, appropriately tender to palpation, non-distended, fundus firm at umbilicus Extremities - no edema, negative Maliha's bilaterally Assessment: PPD 1 NVD Labs pending Plan: Routine care. Encourage breast feeding. Encourage ambulation. Ferrous sulfate supplementation. Plan for discharge later today Vitals - Labs Vital Signs - I&O Vital Signs Date Time Temp Pulse Resp B/P (MAP) Pulse Ox O2 Delivery O2 Flow Rate FiO2 09/30/17 02:30 97.4 90 18 121/83 (96) 99 Room Air 09/29/17 21:44 97.5 75 18 109/69 (82) 99 Room Air 09/29/17 16:26 98.2 86 18 123/83 (96) 99 Room Air 09/29/17 10:36 79 22 128/74 (92) Room Air 09/29/17 10:06 85 22 114/70 (85) Room Air 09/29/17 09:36 92 22 129/66 (87) Room Air 09/29/17 09:06 102 22 119/65 (83) Room Air 09/29/17 08:36 110 22 107/60 (76) Room Air 09/29/17 08:08 127 22 139/64 (89) Non Rebreather 15.00 09/29/17 07:53 Non Rebreather 15.00 09/29/17 07:05 97.7 79 18 135/81 (99) 09/29/17 07:00 18 Room Air 09/29/17 06:40 18 Room Air I & O 09/30/17 07:00 Intake Total 500 ml Balance 500 ml Labs Laboratory Tests 09/30/17 06:20: Microbiology 09/29/17 Urine Culture - Preliminary, Resulted Sent To EULOGIO Queen DO Sep 30, 2017 6:39 am
--- NOTE | 2017-09-30 06:42 | Discharge Inst-Women's Service ---
Discharge Inst-Women's Serv Depart Medication/Instructions New, Converted or Re-Newed RX: RX on Chart Final Diagnosis PPD 1 NVD Consults/Follow Up Additional Follow Up: Yes Orders/Referrals Dr. Bauer in 6 weeks Activity Activity: Activity as Tolerated Driving Instructions: No Driving for 1 Week NO SMOKING: NO SMOKING Nothing Inside Vagina: No Douching, No [place], No Tampons Diet Discharge Diet: No Restrictions Symptoms to Report to : Bleeding Excessive, Pain Increased, Fever Over 101 Degrees F, Vaginal Bleeding Increase, Questions/Concerns For Any Problems or Questions: Contact Your Physician Skin/Wound Care Bathing Instructions: Shower (or sitz baths x 2 weeks) EULOGIO BAUER DO Sep 30, 2017 06:42
[2017-09-30] MEDS ORDERED: FESO45ML PO (06:43)
[2017-09-30] MEDS ORDERED: DOCU50LI PO (06:43)
[2017-09-30] MEDS ORDERED: HYDR15SO8 PO (06:43)
[2017-09-30] MEDS ORDERED: IBUP100O30 PO (06:43)
[2017-09-30] MEDS ORDERED: PRENATAL VITAMIN 1 EA TAB PO SCH (07:00)
[2017-09-30] MEDS: DOCUSATE SODIUM 10 MG/ML 10 ML UDC (COLACE) PO SCH (09:30)
[2017-09-30] MEDS: FERROUS SULFATE ORAL LIQUID 44 MG/ML ML PO SCH (09:45)
[2017-09-30 15:10] VITALS: BP 117/79
== END 2017-09-30 17:55 | disposition home or self-care (01) | DRG 775 ==
LOC: WSo 03:10 → LDRP 03:11 → WSo 05:14 → LDRP 05:15
PROVIDERS: ADMIT Obstetrics & Gynecology; ATTEND Obstetrics & Gynecology
PROC: 10E0XZZ Delivery of Products of Conception, External Approach (ICD-10-PCS; principal; 2017-09-29)
PROC: 0W8NXZZ Division of Female Perineum, External Approach (ICD-10-PCS; 2017-09-29)
DX: O99.334 Smoking (tobacco) complicating childbirth (principal); F17.210 Nicotine dependence, cigarettes, uncomplicated; Z3A.39 39 weeks gestation of pregnancy; Z37.0 Single live birth
CPT/HCPCS: 36415; 81000; 85025; 86850; 86900; 86901; 87088; 99212